=== PATIENT | female | born 1945 | race Two or more races ===

== ENCOUNTER 2020-06-02 05:32 | Day surgery (SDC) | payer OTHER ==
[~2020-06-02 05:32] MED LIST: ALENDRONATE SOD70 MG PO; CALTRATE 600 +1 EACH PO; CHILDREN'S ASPI81 MG PO; CILOSTAZOL100 MG PO; GABAPENTIN600 MG PO; HUMALOG100 UNIT/1; JARDIANCE25 MG PO; LANTUS SOL100 UNIT/1; NOXIFOL-D32500 UNIT PO; VASOTEC20 M1 PO
[2020-06-02] MEDS ORDERED: MACROBID 100 M100 MG PO (10:19)
[2020-06-02] MEDS ORDERED: ULTRACET PO (10:19)
== END 2020-06-02 15:30 | disposition home or self-care (01) ==
LOC: CIR.AMB 05:32
PROVIDERS: ATTEND Obstetrics & Gynecology Gynecology
DX: N81.11 Cystocele, midline (principal); Z20.828 Contact with and (suspected) exposure to other viral communicable diseases